=== PATIENT | male | born 1950 | race Caucasian/White ===

== ENCOUNTER 2023-06-24 10:54 | Observation (INO) ==
[2023-06-24 17:46] LABS: Hematocrit 49.8 % (38-53); Mean Corpuscular Hemoglobin 32.3 pg (27-33); Mean Corpuscular Hgb Conc 34.2 g/dL (31-36); Mean Corpuscular Volume 94.4 fL (80-97); Mean Platelet Volume 7.6 fL (7.5-11.2); Platelet Count 445 10^3/uL (150-450); Red Blood Count 5.27 10^6/uL (4.06-5.63); Red Cell Distribution Width 14.1 % (12-17); White Blood Count 11.1 10^3/uL (3.6-10.2)
[2023-06-24] MEDS ORDERED: Enoxaparin 40 MG/0.4 ML SYR SUBCUT SCH (18:00)
[2023-06-24 18:12] LABS: ALT 47 U/L (7-52); AST 67 U/L (13-39); Albumin < 1.7 g/dL (3.2-5.2); Albumin/Globulin Ratio 0.5 (1-3); Alkaline Phosphatase 148 U/L (35-149); Anion Gap 3 mmol/L (2-16); Blood Urea Nitrogen 30 mg/dL (6-24); CO2 Carbon Dioxide 32 mmol/L (22-32); Calcium 7.7 mg/dL (8.6-10.3); Chloride 98 mmol/L (101-111); Creatinine, Serum 0.85 mg/dL (0.67-1.17); Globulin 3.4 g/dL (2-4); Glucose 113 mg/dL (70-100); Potassium 4.8 mmol/L (3.5-5.0); Sodium 133 mmol/L (135-145); Total Bilirubin 0.2 mg/dL (0.2-1.0); Total Protein 5.1 g/dL (6.4-8.9); eGFR CKD-EPI 92.9 (>60)
[2023-06-24 19:01] LABS: ABS Basophils 0.1 10^3/uL (0.0-0.1); ABS Lymphocytes 1.5 10^3/uL (1.0-4.8); ABS Monocytes 0.4 10^3/uL (0.0-1.1); ABS Neutrophils 9.1 10^3/uL (1.5-7.6); ABS Nucleated RBC 0.04 10^3/ul; Lymphocyte % 13.5 %; Nucleated Red Blood Cells % 0.4 %/100WBC (0.0-0.8); RBC Morphology Normal (Normal)
[2023-06-24 19:35] LABS: Urine Appearance Cloudy; Urine Bilirubin Negative (Negative); Urine Blood 1+ (Negative); Urine Color Yellow; Urine Glucose Negative (Negative); Urine Ketones Negative (Negative); Urine Nitrite Negative (Negative); Urine Protein 3+(>=500 mg/dL) (Negative); Urine Specific Gravity 1.032 (1.002-1.030); Urine Urobilinogen Negative (Negative)
[2023-06-24 19:41] LABS: Urine Bacteria Absent (Absent); Urine Red Blood Cell 1+(3-5/hpf) (Absent); Urine Sperm Present (Absent); Urine White Blood Cell Trace(0-5/hpf) (Absent)
[2023-06-24] MEDS ORDERED: Iohexol 350 (CONTRAST) 500 ML MDV IV ONE (19:49)
[2023-06-24 20:38] LABS: Hepatitis B Surface Ab Not Immune (Immune); Hepatitis C Antibody Negative (Negative)
[2023-06-24] MEDS ORDERED: Lorazepam PYXIS KEY PRN (21:43)
[2023-06-24] MEDS ORDERED: LORazepam 2 mg VIAL 1 ml IV PUSH ONE (21:43)
[2023-06-24 21:49] LABS: Urine Creatinine 138.82 mg/dL
[2023-06-25 06:00] LABS: ABS Basophils 0.1 10^3/uL (0.0-0.1); ABS Eosinophils 0.1 10^3/uL (0.0-0.5); ABS Neutrophils 6.8 10^3/uL (1.5-7.6); ABS Nucleated RBC 0.04 10^3/ul; Eosinophil % 1.2 %; Hematocrit 45.7 % (38-53); Hemoglobin 15.7 g/dL (13.2-16.3); Lymphocyte % 33.3 %; Mean Corpuscular Hemoglobin 32.3 pg (27-33); Mean Corpuscular Hgb Conc 34.4 g/dL (31-36); Mean Corpuscular Volume 93.8 fL (80-97); Mean Platelet Volume 7.5 fL (7.5-11.2); Nucleated Red Blood Cells % 0.3 %/100WBC (0.0-0.8); Platelet Count 378 10^3/uL (150-450); Red Blood Count 4.87 10^6/uL (4.06-5.63); Red Cell Distribution Width 14.4 % (12-17)
[2023-06-25 06:09] LABS: Activated Partial Thrombo Time 35.1 seconds (26.0-38.0); INR 0.89 (0.83-1.13)
[2023-06-25 06:35] LABS: Blood Urea Nitrogen 29 mg/dL (6-24); CO2 Carbon Dioxide 30 mmol/L (22-32); Calcium 7.5 mg/dL (8.6-10.3); Chloride 101 mmol/L (101-111); Creatinine, Serum 0.72 mg/dL (0.67-1.17); Glucose 81 mg/dL (70-100); Potassium 4.1 mmol/L (3.5-5.0); Sodium 131 mmol/L (135-145); eGFR CKD-EPI 97.7 (>60)
[2023-06-25 06:35] LABS: Hepatitis B Surface Antigen Nonreactive (Nonreactive)
[2023-06-25 06:38] LABS: ALT 39 U/L (7-52); AST 47 U/L (13-39); Albumin < 1.7 g/dL (3.2-5.2); Albumin/Globulin Ratio 0.7 (1-3); Alkaline Phosphatase 126 U/L (35-149); Cholesterol 318 mg/dL; Globulin 2.5 g/dL (2-4); HDL Cholesterol 56.7 mg/dL; LDL Cholesterol 218 mg/dL; Magnesium 1.8 mg/dL (1.9-2.7); Phosphorus 3.4 mg/dL (2.5-5.0); Total Bilirubin 0.2 mg/dL (0.2-1.0); Total Protein 4.2 g/dL (6.4-8.9); Triglycerides 217 mg/dL
[2023-06-25 09:45] LABS: HIV 4th Generation Nonreactive (Nonreactive)
[2023-06-25] MEDS ORDERED: Albumin Human 25% 25 GM/100 ML BTL IV ONE (09:48)
[2023-06-25] MEDS: Bumetanide IV 0.25 MG/ML 4 ml VIAL (1 mg) IV SLOW PU SCH ×2 (10:00→20:33)
[2023-06-25] MEDS ORDERED: NS 0.9% IVPB ONE (11:20)
[2023-06-25] MEDS ORDERED: DESMOPRESSIN ACETATE IVPB ONE (11:20)
[2023-06-26 04:02] LABS: Urine TP Concentration 416 mg/dL
[2023-06-26 06:25] LABS: ABS Basophils 0.1 10^3/uL (0.0-0.1); ABS Eosinophils 0.4 10^3/uL (0.0-0.5); ABS Lymphocytes 2.7 10^3/uL (1.0-4.8); ABS Monocytes 0.7 10^3/uL (0.0-1.1); ABS Neutrophils 4.4 10^3/uL (1.5-7.6); ABS Nucleated RBC 0.02 10^3/ul; Eosinophil % 4.4 %; Hematocrit 38.3 % (38-53); Hemoglobin 13.4 g/dL (13.2-16.3); Lymphocyte % 33.1 %; Mean Corpuscular Hemoglobin 32.6 pg (27-33); Mean Corpuscular Hgb Conc 34.9 g/dL (31-36); Mean Corpuscular Volume 93.4 fL (80-97); Mean Platelet Volume 7.7 fL (7.5-11.2); Nucleated Red Blood Cells % 0.2 %/100WBC (0.0-0.8); Platelet Count 320 10^3/uL (150-450); Red Cell Distribution Width 14.3 % (12-17); White Blood Count 8.3 10^3/uL (3.6-10.2)
[2023-06-26 06:28] LABS: INR 0.95 (0.83-1.13)
[2023-06-26 06:37] LABS: Anion Gap 1 mmol/L (2-16); Blood Urea Nitrogen 30 mg/dL (6-24); CO2 Carbon Dioxide 33 mmol/L (22-32); Calcium 7.2 mg/dL (8.6-10.3); Chloride 102 mmol/L (101-111); Creatinine, Serum 0.66 mg/dL (0.67-1.17); Glucose 82 mg/dL (70-100); Potassium 3.5 mmol/L (3.5-5.0); Sodium 136 mmol/L (135-145); eGFR CKD-EPI 100.3 (>60)
[2023-06-26 06:38] LABS: ALT 31 U/L (7-52); AST 39 U/L (13-39); Albumin < 1.7 g/dL (3.2-5.2); Albumin/Globulin Ratio 0.9 (1-3); Alkaline Phosphatase 90 U/L (35-149); Globulin 1.9 g/dL (2-4); Magnesium 1.7 mg/dL (1.9-2.7); Total Bilirubin 0.3 mg/dL (0.2-1.0); Total Protein 3.6 g/dL (6.4-8.9)
[2023-06-26] MEDS ORDERED: Bumetanide IV 0.25 MG/ML 4 ml VIAL (1 mg) IV SLOW PU ONE ×2 (08:57→18:47)
[2023-06-26] MEDS ORDERED: Influenza vaccine *QUAD* *2023-24* 0.5 ML SYRINGE IM ONE (09:00)
[2023-06-26] MEDS ORDERED: Magnesium Sulfate 2 gm BAG 2 GM/50 ML BAG IVPB ONE (09:03)
[2023-06-26] MEDS: Enoxaparin 40 MG/0.4 ML SYR SUBCUT SCH (10:27)
[2023-06-26] MEDS: Albumin Human 25% 25 GM/100 ML BTL IV SCH ×3 (12:03→18:12)
[2023-06-26] MEDS: KCL 20 MEQ/100 ML IVPREMIX 20 MEQ/100 ML BAG IV SCH ×2 (12:08→17:43)
[2023-06-26 15:44] LABS: Kappa Free Light Chain 5.04 mg/dL; Lambda Free Light Chain, S 3.06 mg/dL
[2023-06-26 16:56] LABS: Body Fluid Appearance Cloudy; Body Fluid Color Colorless; Body Fluid Source Peritonial Fluid
[2023-06-26 17:17] LABS: Body Fluid Total Nucleated 139 /mcL
[2023-06-26] MEDS ORDERED: KCL 20 MEQ/100 ML IVPREMIX 20 MEQ/100 ML BAG ONE (17:38)
[2023-06-26 17:49] LABS: Body Fluid Mono 61 %; Body Fluid Total Cells Counted 200
[2023-06-26 20:44] LABS: Complement C3 137 mg/dL (75 - 175)
[2023-06-27] MEDS: Albumin Human 25% 25 GM/100 ML BTL IV SCH ×4 (00:33→20:12)
[2023-06-27 07:12] LABS: ALT 22 U/L (7-52); AST 29 U/L (13-39); Albumin 2.2 g/dL (3.2-5.2); Albumin/Globulin Ratio 1.3 (1-3); Alkaline Phosphatase 70 U/L (35-149); Blood Urea Nitrogen 19 mg/dL (6-24); CO2 Carbon Dioxide 35 mmol/L (22-32); Calcium 7.2 mg/dL (8.6-10.3); Chloride 103 mmol/L (101-111); Globulin 1.7 g/dL (2-4); Glucose 88 mg/dL (70-100); Magnesium 1.9 mg/dL (1.9-2.7); Potassium 3.4 mmol/L (3.5-5.0); Sodium 138 mmol/L (135-145); Total Bilirubin 0.5 mg/dL (0.2-1.0); Total Protein 3.9 g/dL (6.4-8.9); eGFR CKD-EPI 103.2 (>60)
[2023-06-27] MEDS ORDERED: Influenza vaccine *QUAD* *2023-24* 0.5 ML SYRINGE IM ONE (09:00)
[2023-06-27] MEDS: Enoxaparin 40 MG/0.4 ML SYR SUBCUT SCH (12:42)
[2023-06-27] MEDS: KCL 20 MEQ/100 ML IVPREMIX 20 MEQ/100 ML BAG IV SCH ×2 (12:43→16:33)
[2023-06-27] MEDS: Bumetanide IV 0.25 MG/ML 4 ml VIAL (1 mg) IV SLOW PU SCH ×2 (13:45→21:40)
[2023-06-27] MEDS: Potassium Chlor 20 meq TAB.ER PO SCH ×2 (20:15→21:40)
[2023-06-28] MEDS: Albumin Human 25% 25 GM/100 ML BTL IV SCH ×2 (00:10→06:00)
[2023-06-28 06:40] LABS: Hematocrit 34.6 % (38-53); Mean Corpuscular Hemoglobin 32.2 pg (27-33); Mean Corpuscular Hgb Conc 34.7 g/dL (31-36); Mean Corpuscular Volume 92.9 fL (80-97); Platelet Count 241 10^3/uL (150-450); Red Blood Count 3.73 10^6/uL (4.06-5.63); Red Cell Distribution Width 13.9 % (12-17); White Blood Count 8.4 10^3/uL (3.6-10.2)
[2023-06-28 07:00] LABS: Albumin 2.6 g/dL (3.2-5.2); Albumin/Globulin Ratio 1.5 (1-3); Calcium 7.6 mg/dL (8.6-10.3); Creatinine, Serum 0.55 mg/dL (0.67-1.17); Globulin 1.7 g/dL (2-4); Magnesium 1.8 mg/dL (1.9-2.7); Potassium 3.5 mmol/L (3.5-5.0); Total Bilirubin 0.7 mg/dL (0.2-1.0); Total Protein 4.3 g/dL (6.4-8.9)
[2023-06-28 07:25] LABS: ABS Basophils 0.1 10^3/uL (0.0-0.1); ABS Eosinophils 0.3 10^3/uL (0.0-0.5); ABS Lymphocytes 2.2 10^3/uL (1.0-4.8); ABS Neutrophils 4.8 10^3/uL (1.5-7.6); Eosinophil % 3.6 %; Lymphocyte % 25.8 %; RBC Morphology Normal (Normal)
[2023-06-28] MEDS ORDERED: Potassium Chloride LIQUID 20 MEQ/15 ML LIQUID PO ONE (08:40)
[2023-06-28] MEDS ORDERED: Magnesium Sulfate 2 gm BAG 2 GM/50 ML BAG IVPB ONE (08:40)
[2023-06-28] MEDS ORDERED: Potassium Chlor 10 meq TAB PO ONE (08:40)
[2023-06-28] MEDS: Enoxaparin 40 MG/0.4 ML SYR SUBCUT SCH (10:13)
[2023-06-28 15:37] LABS: Lactate Dehydrogenase, BF 39 U/L
[2023-06-28] MEDS: Potassium Chlor 20 meq TAB.ER PO SCH (21:08)
[2023-06-28] MEDS: Bumetanide IV 0.25 MG/ML 4 ml VIAL (1 mg) IV SLOW PU SCH (21:09)
[2023-06-29 09:03] LABS: ABS Basophils 0.1 10^3/uL (0.0-0.1); ABS Eosinophils 0.4 10^3/uL (0.0-0.5); ABS Lymphocytes 1.9 10^3/uL (1.0-4.8); ABS Neutrophils 5.7 10^3/uL (1.5-7.6); ABS Nucleated RBC 0.01 10^3/ul; Eosinophil % 3.8 %; Hematocrit 40.1 % (38-53); Hemoglobin 13.7 g/dL (13.2-16.3); Lymphocyte % 21.1 %; Mean Corpuscular Hemoglobin 32.1 pg (27-33); Mean Corpuscular Hgb Conc 34.2 g/dL (31-36); Mean Corpuscular Volume 93.9 fL (80-97); Mean Platelet Volume 8.1 fL (7.5-11.2); Nucleated Red Blood Cells % 0.1 %/100WBC (0.0-0.8); Platelet Count 267 10^3/uL (150-450); Red Blood Count 4.28 10^6/uL (4.06-5.63); Red Cell Distribution Width 13.9 % (12-17); White Blood Count 9.1 10^3/uL (3.6-10.2)
[2023-06-29] MEDS: Potassium Chlor 20 meq TAB.ER PO SCH ×2 (09:16→20:32)
[2023-06-29] MEDS: Enoxaparin 40 MG/0.4 ML SYR SUBCUT SCH (09:16)
[2023-06-29] MEDS: Bumetanide IV 0.25 MG/ML 4 ml VIAL (1 mg) IV SLOW PU SCH ×3 (09:25→20:22)
[2023-06-29 09:28] LABS: Albumin 2.1 g/dL (3.2-5.2); Calcium 7.6 mg/dL (8.6-10.3); Creatinine, Serum 0.57 mg/dL (0.67-1.17); Globulin 2.2 g/dL (2-4); Magnesium 1.8 mg/dL (1.9-2.7); Potassium 3.9 mmol/L (3.5-5.0); Total Bilirubin 0.5 mg/dL (0.2-1.0); Total Protein 4.3 g/dL (6.4-8.9); eGFR CKD-EPI 104.8 (>60)
[2023-06-29 10:57] LABS: Fluid Type, Protein, Total PERITONEAL; Glucose, BF 133 mg/dL; Total Protein, BF 0.2 g/dL
[2023-06-29 12:43] LABS: Albumin, BF <0.3 g/dL; Fluid Type, Albumin PERITONEAL
[2023-06-29] MEDS ORDERED: Albumin Human 25% 25 GM/100 ML BTL IV ONE (14:52)
[2023-06-29] MEDS ORDERED: Magnesium Sulfate 2 gm BAG 2 GM/50 ML BAG IVPB ONE (15:13)
[2023-06-29] MEDS ORDERED: Albumin Human 25% 25 GM/100 ML BTL IV SCH (15:30)
[2023-06-29] MEDS: Albumin Human 25% 25 GM/100 ML BTL IV SCH ×2 (18:14→20:17)
[2023-06-29] MEDS ORDERED: Sodium Phosphate IV 15 MMOL in NS 0.9% 250 ml 250 ML IV ONE (18:38)
[2023-06-30 06:53] LABS: Hematocrit 38.9 % (38-53); Hemoglobin 13.1 g/dL (13.2-16.3); Mean Corpuscular Hemoglobin 31.7 pg (27-33); Mean Corpuscular Hgb Conc 33.7 g/dL (31-36); Mean Corpuscular Volume 93.9 fL (80-97); Mean Platelet Volume 7.6 fL (7.5-11.2); Platelet Count 266 10^3/uL (150-450); Red Blood Count 4.14 10^6/uL (4.06-5.63); Red Cell Distribution Width 14.1 % (12-17); White Blood Count 8.9 10^3/uL (3.6-10.2)
[2023-06-30 07:13] LABS: Calcium 7.5 mg/dL (8.6-10.3); Creatinine, Serum 0.59 mg/dL (0.67-1.17); Magnesium 1.9 mg/dL (1.9-2.7); Phosphorus 3.2 mg/dL (2.5-5.0); Potassium 4.1 mmol/L (3.5-5.0); eGFR CKD-EPI 103.7 (>60)
[2023-06-30 07:31] LABS: INR 1.05 (0.83-1.13)
[2023-06-30 07:48] LABS: ABS Eosinophils 0.3 10^3/uL (0.0-0.5); ABS Lymphocytes 2.2 10^3/uL (1.0-4.8); ABS Monocytes 1.2 10^3/uL (0.0-1.1); ABS Neutrophils 5.1 10^3/uL (1.5-7.6); Eosinophil % 3.7 %; Lymphocyte % 25.2 %
[2023-06-30 07:49] LABS: RBC Morphology Normal (Normal)
[2023-06-30] MEDS ORDERED: Lidocaine 2% PF 5 ML VIAL INJ ONE (08:43)
[2023-06-30] MEDS ORDERED: Potassium Chlor 20 meq TAB.ER PO SCH (09:00)
[2023-06-30 10:23] LABS: Albumin 2.4 g/dL (3.2-5.2); Total Protein 4.4 g/dL (6.4-8.9)
[2023-06-30] MEDS ORDERED: Iohexol 350 (CONTRAST) 500 ML MDV IV ONE (12:04)
[2023-06-30 13:55] VITALS: BP 112/74
[2023-07-01 22:28] LABS: Flag, M-protein Isotype Positive (Negative); M spike Band 2 0.3 g/dL; Total Protein 3.9 g/dL (6.3 - 7.9)
[2023-07-02 17:19] LABS: Urine Kappa Total Light Chain 12.7 mg/dL (<0.9000); Urine Kappa/Lambda Light Chain 3.87; Urine Lambda Total Light Chain 3.28 mg/dL (<0.7000)
[2023-07-03 08:50] LABS: PLA2R, Immunofluorescence, S Negative (Negative)
[2023-07-09 17:45] LABS: BM Chromosome Source L PIC; BM Result Summary Normal
== END 2023-06-30 15:58 | disposition home or self-care (01) ==
LOC: SUATTDRO 15:50 → MED 15:50 → INTOOBSV 15:50
PROVIDERS: ADMIT Internal Medicine; ATTEND Internal Medicine

== ENCOUNTER 2023-07-22 18:41 | Inpatient (IN) ==
[2023-07-22] MEDS ORDERED: NS 0.9% 1000 ml BAG 1,000 ML IV ONE ×3 (19:00→21:58)
[2023-07-22 19:45] LABS: ABS Basophils 0.1 10^3/uL (0.0-0.1); ABS Eosinophils 0.2 10^3/uL (0.0-0.5); ABS Lymphocytes 3.5 10^3/uL (1.0-4.8); ABS Monocytes 0.8 10^3/uL (0.0-1.1); ABS Neutrophils 8.6 10^3/uL (1.5-7.6); ABS Nucleated RBC 0.03 10^3/ul; Eosinophil % 1.6 %; Hematocrit 42.1 % (38-53); Hemoglobin 14.3 g/dL (13.2-16.3); Lymphocyte % 26.3 %; Mean Corpuscular Hemoglobin 32.2 pg (27-33); Mean Corpuscular Hgb Conc 34.1 g/dL (31-36); Mean Corpuscular Volume 94.4 fL (80-97); Mean Platelet Volume 7.2 fL (7.5-11.2); Nucleated Red Blood Cells % 0.2 %/100WBC (0.0-0.8); Platelet Count 398 10^3/uL (150-450); Red Blood Count 4.45 10^6/uL (4.06-5.63); Red Cell Distribution Width 14.5 % (12-17); White Blood Count 13.2 10^3/uL (3.6-10.2)
[2023-07-22 19:54] LABS: INR 1.02 (0.83-1.13)
[2023-07-22 20:08] LABS: Anion Gap 4 mmol/L (2-16); Blood Urea Nitrogen 25 mg/dL (6-24); C Reactive Protein 5.34 mg/L (<8.01); CO2 Carbon Dioxide 31 mmol/L (22-32); Calcium 7.3 mg/dL (8.6-10.3); Chloride 94 mmol/L (101-111); Creatinine, Serum 0.82 mg/dL (0.67-1.17); Glucose 125 mg/dL (70-100); Potassium 3.7 mmol/L (3.5-5.0); Sodium 129 mmol/L (135-145); eGFR CKD-EPI 93.9 (>60)
[2023-07-22 20:11] LABS: High Sens Troponin Baseline 11 pg/mL (<20)
[2023-07-22 20:45] LABS: ALT 24 U/L (7-52); AST 34 U/L (13-39); Albumin < 1.7 g/dL (3.2-5.2); Albumin/Globulin Ratio 0.6 (1-3); Alkaline Phosphatase 138 U/L (35-149); Globulin 2.9 g/dL (2-4); Lipase 44 U/L (11.0-82.0); Magnesium 1.8 mg/dL (1.9-2.7); Phosphorus 4.3 mg/dL (2.5-5.0); Total Bilirubin 0.1 mg/dL (0.2-1.0); Total Protein 4.6 g/dL (6.4-8.9)
[2023-07-22 21:10] LABS: High Sensitivity Troponin 1 Hr 10 pg/mL (<20)
[2023-07-22 21:40] LABS: Urine Appearance Cloudy; Urine Bilirubin Negative (Negative); Urine Blood 1+ (Negative); Urine Color Yellow; Urine Glucose 1+(50 mg/dL) (Negative); Urine Ketones Negative (Negative); Urine Nitrite Negative (Negative); Urine Protein 3+(>=500 mg/dL) (Negative); Urine Specific Gravity 1.019 (1.002-1.030); Urine Urobilinogen Negative (Negative)
[2023-07-22 21:50] LABS: Urine Bacteria 1+ (Absent); Urine Red Blood Cell 1+(3-5/hpf) (Absent); Urine Squamous Epithelial Cell Present (Absent); Urine White Blood Cell 2+(11-20/hpf) (Absent)
[2023-07-23] MEDS ORDERED: Norepinephrine 4 MG/250mL D5W 4,000 MCG/250 ML BAG IV SCH
[2023-07-23] MEDS ORDERED: Albumin Human 25% 25 GM/100 ML BTL IV ONE ×2 (04:26→08:00)
[2023-07-23] MEDS ORDERED: cefTRIAXone 1 gm/50 mL D5W 1 GM/50 ML BAG IV ONE (05:15)
[2023-07-23] MEDS ORDERED: cefTRIAXone 1 GM ONETIME (ADVAN) IVPB ONE (05:30)
[2023-07-23] MEDS ORDERED: Piperacillin/Tazobac 3.375 BAG 3.375 GM/100 ML BAG IV ONE (05:36)
[2023-07-23] MEDS ORDERED: Zosyn per Pharmacy NOTE FOLLOW UP SCH (06:00)
[2023-07-23 07:03] LABS: ABS Basophils 0.1 10^3/uL (0.0-0.1); ABS Eosinophils 0.3 10^3/uL (0.0-0.5); ABS Lymphocytes 3.9 10^3/uL (1.0-4.8); ABS Monocytes 1.1 10^3/uL (0.0-1.1); ABS Neutrophils 8.9 10^3/uL (1.5-7.6); ABS Nucleated RBC 0.01 10^3/ul; Eosinophil % 2.3 %; Hematocrit 42.1 % (38-53); Hemoglobin 14.5 g/dL (13.2-16.3); Lymphocyte % 27.4 %; Mean Corpuscular Hemoglobin 32.2 pg (27-33); Mean Corpuscular Hgb Conc 34.6 g/dL (31-36); Mean Platelet Volume 6.8 fL (7.5-11.2); Nucleated Red Blood Cells % 0.1 %/100WBC (0.0-0.8); Platelet Count 403 10^3/uL (150-450); Red Blood Count 4.52 10^6/uL (4.06-5.63); Red Cell Distribution Width 14.5 % (12-17); White Blood Count 14.4 10^3/uL (3.6-10.2)
[2023-07-23 08:03] LABS: Creatinine, Serum 0.69 mg/dL (0.67-1.17); Magnesium 1.6 mg/dL (1.9-2.7); Potassium 3.9 mmol/L (3.5-5.0); eGFR CKD-EPI 98.9 (>60)
[2023-07-23] MEDS: KCL 20 MEQ/100 ML IVPREMIX 20 MEQ/100 ML BAG IV SCH ×2 (09:04→11:17)
[2023-07-23] MEDS: ZOSYN 3.375 GM Q8H per EXTENDED INFUSION IV SCH ×2 (11:49→16:57)
[2023-07-24] MEDS: ZOSYN 3.375 GM Q8H per EXTENDED INFUSION IV SCH ×2 (02:20→10:08)
[2023-07-24 04:57] LABS: Hematocrit 34.7 % (38-53); Hemoglobin 12.2 g/dL (13.2-16.3); Mean Corpuscular Hemoglobin 32.4 pg (27-33); Mean Corpuscular Volume 92.6 fL (80-97); Platelet Count 339 10^3/uL (150-450); Red Blood Count 3.75 10^6/uL (4.06-5.63); Red Cell Distribution Width 14.2 % (12-17); White Blood Count 8.1 10^3/uL (3.6-10.2)
[2023-07-24 05:15] LABS: Calcium 6.8 mg/dL (8.6-10.3); Creatinine, Serum 0.73 mg/dL (0.67-1.17); Magnesium 1.6 mg/dL (1.9-2.7); eGFR CKD-EPI 97.3 (>60)
[2023-07-24 05:54] LABS: Potassium 3.5 mmol/L (3.5-5.0)
[2023-07-24 08:02] LABS: ABS Eosinophils 0.5 10^3/uL (0.0-0.5); ABS Lymphocytes 3.2 10^3/uL (1.0-4.8); ABS Monocytes 0.8 10^3/uL (0.0-1.1); ABS Neutrophils 3.6 10^3/uL (1.5-7.6); ABS Nucleated RBC 0.01 10^3/ul; Eosinophil % 5.6 %; Lymphocyte % 39.1 %; Nucleated Red Blood Cells % 0.1 %/100WBC (0.0-0.8); RBC Morphology Normal (Normal)
[2023-07-24] MEDS: Potassium Chlor 20 meq TAB.ER PO SCH ×2 (11:42→13:10)
[2023-07-24 12:36] VITALS: BP 103/66
[2023-07-24] MEDS ORDERED: Magnesium Sulfate 2 gm BAG 2 GM/50 ML BAG IVPB ONE (12:50)
== END 2023-07-24 14:15 | disposition home or self-care (01) | DRG 315 ==
LOC: ED 18:41 → EDHOLD 07-23 00:37 → ICU 07-23 13:15
PROVIDERS: ADMIT Surgery Surgical Critical Care; ATTEND Surgery Surgical Critical Care

== ENCOUNTER 2023-07-30 17:50 | Inpatient (IN) ==
[2023-07-30] MEDS ORDERED: NS 0.9% 1000 ml BAG 1,000 ML IV ONE (18:27)
[2023-07-30] MEDS ORDERED: Prothrombin Complex Conc. DOSE = Units Factor IX (nine) IV SLOW PU ONE (18:28)
[2023-07-30 18:34] LABS: Hematocrit 40.9 % (38-53); Hemoglobin 14.1 g/dL (13.2-16.3); Mean Corpuscular Hemoglobin 32.4 pg (27-33); Mean Corpuscular Hgb Conc 34.5 g/dL (31-36); Mean Corpuscular Volume 93.9 fL (80-97); Mean Platelet Volume 6.8 fL (7.5-11.2); Platelet Count 484 10^3/uL (150-450); Red Blood Count 4.36 10^6/uL (4.06-5.63); White Blood Count 8.4 10^3/uL (3.6-10.2)
[2023-07-30 18:50] LABS: Activated Partial Thrombo Time 32.7 seconds (26.0-38.0); INR 0.97 (0.83-1.13)
[2023-07-30 18:52] LABS: Anion Gap 6 mmol/L (2-16); Blood Urea Nitrogen 25 mg/dL (6-24); CO2 Carbon Dioxide 27 mmol/L (22-32); Calcium 7.2 mg/dL (8.6-10.3); Chloride 96 mmol/L (101-111); Creatinine, Serum 1.08 mg/dL (0.67-1.17); Glucose 134 mg/dL (70-100); Potassium 4.3 mmol/L (3.5-5.0); Sodium 129 mmol/L (135-145); eGFR CKD-EPI 73.4 (>60)
[2023-07-30 18:59] LABS: ALT 44 U/L (7-52); AST 106 U/L (13-39); Albumin < 1.7 g/dL (3.2-5.2); Albumin/Globulin Ratio 0.7 (1-3); Alkaline Phosphatase 159 U/L (35-149); Globulin 2.6 g/dL (2-4); Total Bilirubin 0.2 mg/dL (0.2-1.0); Total Protein 4.3 g/dL (6.4-8.9)
[2023-07-30 19:47] LABS: ABS Basophils 0.1 10^3/uL (0.0-0.1); ABS Lymphocytes 1.3 10^3/uL (1.0-4.8); ABS Monocytes 0.3 10^3/uL (0.0-1.1); ABS Neutrophils 6.7 10^3/uL (1.5-7.6); ABS Nucleated RBC 0.02 10^3/ul; Eosinophil % 0.1 %; Lymphocyte % 15.1 %; Nucleated Red Blood Cells % 0.2 %/100WBC (0.0-0.8)
[2023-07-30] MEDS ORDERED: Lactated Ringers 1000 ml BAG 1,000 ML IV ONE (20:00)
[2023-07-30] MEDS ORDERED: Albuterol/Ipratropium NEB.SOL (2.5/0.5 MG) 3 ML NEB.SOLN INH ONE (20:46)
[2023-07-30] MEDS ORDERED: methylPREDNISolone SOD SUCC 125 mg 2 ML VIAL IV ONE (22:59)
[2023-07-30] MEDS ORDERED: Pantoprazole VIAL 40 MG VIAL IV ONE (23:11)
[2023-07-30] MEDS ORDERED: Norepinephrine 4 MG/250mL D5W 4,000 MCG/250 ML BAG IV SCH (23:45)
[2023-07-30] MEDS: Albuterol HFA INHALER 8 gm MDI INH SCH (23:47)
[2023-07-31] MEDS ORDERED: Remdesivir 100 mg Vial 200 MG in NS 0.9% 250 ml 210 ML IV ONE (01:00)
[2023-07-31] MEDS ORDERED: Albumin Human 5% 12.5 GM/250 ML BTL IV ONE (02:19)
[2023-07-31] MEDS: Albuterol HFA INHALER 8 gm MDI INH SCH ×3 (03:31→11:17)
[2023-07-31 03:41] LABS: Anion Gap 8 mmol/L (2-16); Blood Urea Nitrogen 27 mg/dL (6-24); CO2 Carbon Dioxide 25 mmol/L (22-32); Calcium 6.7 mg/dL (8.6-10.3); Chloride 97 mmol/L (101-111); Creatinine, Serum 1.17 mg/dL (0.67-1.17); Glucose 140 mg/dL (70-100); Potassium 4.1 mmol/L (3.5-5.0); Sodium 130 mmol/L (135-145); eGFR CKD-EPI 66.6 (>60)
[2023-07-31 03:42] LABS: INR 0.85 (0.83-1.13)
[2023-07-31 03:45] LABS: ALT 38 U/L (7-52); AST 72 U/L (13-39); Albumin < 1.7 g/dL (3.2-5.2); Albumin/Globulin Ratio 0.7 (1-3); Alkaline Phosphatase 142 U/L (35-149); Globulin 2.3 g/dL (2-4); Magnesium 1.6 mg/dL (1.9-2.7); Total Bilirubin 0.2 mg/dL (0.2-1.0)
[2023-07-31 04:43] LABS: ABS Lymphocytes 0.6 10^3/uL (1.0-4.8); ABS Monocytes 0.4 10^3/uL (0.0-1.1); ABS Neutrophils 10.6 10^3/uL (1.5-7.6); ABS Nucleated RBC 0.01 10^3/ul; Hemoglobin 13.9 g/dL (13.2-16.3); Lymphocyte % 5.2 %; Mean Corpuscular Hemoglobin 32.1 pg (27-33); Mean Corpuscular Hgb Conc 33.9 g/dL (31-36); Mean Corpuscular Volume 94.5 fL (80-97); Mean Platelet Volume 8.3 fL (7.5-11.2); Nucleated Red Blood Cells % 0.1 %/100WBC (0.0-0.8); Platelet Count 440 10^3/uL (150-450); Red Blood Count 4.34 10^6/uL (4.06-5.63); Red Cell Distribution Width 15.3 % (12-17); White Blood Count 11.7 10^3/uL (3.6-10.2)
[2023-07-31] MEDS: SPIRIVA Respimat (tiotropium) 2.5 mcg/inh Inhaler INH SCH (11:15)
[2023-07-31] MEDS ORDERED: Albuterol HFA INHALER 8 gm MDI INH PRN (11:15)
[2023-08-01] MEDS ORDERED: Albuterol/Ipratropium NEB.SOL (2.5/0.5 MG) 3 ML NEB.SOLN INH PRN (03:10)
[2023-08-01] MEDS ORDERED: Albuterol/Ipratropium NEB.SOL (2.5/0.5 MG) 3 ML NEB.SOLN INH ONE (04:00)
[2023-08-01 06:40] LABS: ABS Monocytes 0.7 10^3/uL (0.0-1.1); ABS Neutrophils 6.4 10^3/uL (1.5-7.6); ABS Nucleated RBC 0.01 10^3/ul; Eosinophil % 0.1 %; Hematocrit 40.7 % (38-53); Hemoglobin 14.3 g/dL (13.2-16.3); Lymphocyte % 12.2 %; Mean Corpuscular Hemoglobin 32.3 pg (27-33); Mean Corpuscular Volume 92.2 fL (80-97); Mean Platelet Volume 7.5 fL (7.5-11.2); Nucleated Red Blood Cells % 0.1 %/100WBC (0.0-0.8); Platelet Count 361 10^3/uL (150-450); Red Blood Count 4.42 10^6/uL (4.06-5.63); Red Cell Distribution Width 15.1 % (12-17); White Blood Count 8.2 10^3/uL (3.6-10.2)
[2023-08-01 06:54] LABS: INR 1.05 (0.83-1.13)
[2023-08-01 06:55] LABS: Anion Gap 9 mmol/L (2-16); Blood Urea Nitrogen 43 mg/dL (6-24); CO2 Carbon Dioxide 23 mmol/L (22-32); Calcium 6.6 mg/dL (8.6-10.3); Chloride 96 mmol/L (101-111); Creatinine, Serum 1.61 mg/dL (0.67-1.17); Glucose 84 mg/dL (70-100); Potassium 3.8 mmol/L (3.5-5.0); Sodium 128 mmol/L (135-145); eGFR CKD-EPI 45.4 (>60)
[2023-08-01 06:57] LABS: ALT 28 U/L (7-52); AST 72 U/L (13-39); Albumin < 1.7 g/dL (3.2-5.2); Albumin/Globulin Ratio 0.8 (1-3); Alkaline Phosphatase 116 U/L (35-149); Globulin 2.1 g/dL (2-4); Magnesium 1.5 mg/dL (1.9-2.7); Total Bilirubin 0.2 mg/dL (0.2-1.0); Total Protein 3.8 g/dL (6.4-8.9)
[2023-08-01] MEDS ORDERED: Magnesium Sulf 4 GM/100 ML IV 4,000 MG/100 ML BAG IVPB ONE (07:37)
[2023-08-01] MEDS: SPIRIVA Respimat (tiotropium) 2.5 mcg/inh Inhaler INH SCH (07:57)
[2023-08-01] MEDS ORDERED: Albumin Human 5% 12.5 GM/250 ML BTL IV ONE (11:27)
[2023-08-01] MEDS: Albumin Human 25% 25 GM/100 ML BTL IV ONE ×2 (12:07→12:09)
[2023-08-01 12:38] LABS: PCO2 Arterial 32 mmHg (35-45); PO2 Arterial 97 mmHg (80-100)
[2023-08-01] MEDS: Remdesivir 100 mg Vial 100 MG in NS 0.9% 250 ml 230 ML IV SCH (13:56)
[2023-08-01] MEDS ORDERED: methylPREDNISolone SOD SUCC 40 mg/ml 1 ml VIAL IV SCH (17:00)
[2023-08-01] MEDS: methylPREDNISolone SOD SUCC 40 mg/ml 1 ml VIAL IV SCH (17:27)
[2023-08-02] MEDS: methylPREDNISolone SOD SUCC 40 mg/ml 1 ml VIAL IV SCH ×2 (05:09→16:42)
[2023-08-02] MEDS: SPIRIVA Respimat (tiotropium) 2.5 mcg/inh Inhaler INH SCH (07:13)
[2023-08-02] MEDS: Remdesivir 100 mg Vial 100 MG in NS 0.9% 250 ml 230 ML IV SCH (09:42)
[2023-08-02 10:28] LABS: INR 1.45 (0.83-1.13)
[2023-08-02 11:42] LABS: ABS Lymphocytes 0.7 10^3/uL (1.0-4.8); ABS Monocytes 0.4 10^3/uL (0.0-1.1); ABS Neutrophils 6.7 10^3/uL (1.5-7.6); ABS Nucleated RBC 0.01 10^3/ul; Eosinophil % 0.2 %; Hematocrit 39.6 % (38-53); Hemoglobin 13.2 g/dL (13.2-16.3); Lymphocyte % 8.7 %; Mean Corpuscular Hemoglobin 32.7 pg (27-33); Mean Corpuscular Hgb Conc 33.4 g/dL (31-36); Mean Corpuscular Volume 97.9 fL (80-97); Mean Platelet Volume 7.1 fL (7.5-11.2); Nucleated Red Blood Cells % 0.1 %/100WBC (0.0-0.8); Platelet Count 300 10^3/uL (150-450); Red Blood Count 4.05 10^6/uL (4.06-5.63); Red Cell Distribution Width 16.2 % (12-17); White Blood Count 7.8 10^3/uL (3.6-10.2)
[2023-08-02 12:11] LABS: ALT 28 U/L (7-52); Albumin < 1.7 g/dL (3.2-5.2); Alkaline Phosphatase 104 U/L (35-149); Anion Gap 15 mmol/L (2-16); Blood Urea Nitrogen 56 mg/dL (6-24); CO2 Carbon Dioxide 18 mmol/L (22-32); Calcium 6.6 mg/dL (8.6-10.3); Chloride 95 mmol/L (101-111); Creatinine, Serum 1.94 mg/dL (0.67-1.17); Globulin 1.7 g/dL (2-4); Glucose 146 mg/dL (70-100); Magnesium 2.3 mg/dL (1.9-2.7); Sodium 128 mmol/L (135-145); Total Bilirubin 0.4 mg/dL (0.2-1.0); Total Protein 3.4 g/dL (6.4-8.9); eGFR CKD-EPI 36.3 (>60)
[2023-08-02 15:52] LABS: Potassium Redraw 4.1 mmol/L (3.5-5.0)
[2023-08-03] MEDS: methylPREDNISolone SOD SUCC 40 mg/ml 1 ml VIAL IV SCH (05:48)
[2023-08-03] MEDS: SPIRIVA Respimat (tiotropium) 2.5 mcg/inh Inhaler INH SCH (07:54)
[2023-08-03 09:44] LABS: ABS Lymphocytes 1.1 10^3/uL (1.0-4.8); ABS Monocytes 0.9 10^3/uL (0.0-1.1); ABS Neutrophils 8.9 10^3/uL (1.5-7.6); ABS Nucleated RBC 0.01 10^3/ul; Eosinophil % 0.1 %; Hematocrit 46.9 % (38-53); Hemoglobin 15.9 g/dL (13.2-16.3); Lymphocyte % 10.4 %; Mean Corpuscular Hemoglobin 32.5 pg (27-33); Mean Corpuscular Hgb Conc 33.8 g/dL (31-36); Mean Platelet Volume 7.2 fL (7.5-11.2); Nucleated Red Blood Cells % 0.1 %/100WBC (0.0-0.8); Platelet Count 363 10^3/uL (150-450); Red Blood Count 4.88 10^6/uL (4.06-5.63); Red Cell Distribution Width 15.6 % (12-17)
[2023-08-03 09:56] LABS: INR 1.28 (0.83-1.13)
[2023-08-03] MEDS: Remdesivir 100 mg Vial 100 MG in NS 0.9% 250 ml 230 ML IV SCH (09:56)
[2023-08-03 10:03] LABS: Albumin 1.7 g/dL (3.2-5.2); Albumin/Globulin Ratio 0.6 (1-3); Calcium 7.1 mg/dL (8.6-10.3); Magnesium 2.5 mg/dL (1.9-2.7); Total Bilirubin 0.3 mg/dL (0.2-1.0); Total Protein 4.7 g/dL (6.4-8.9)
[2023-08-03] MEDS ORDERED: Albumin Human 5% 12.5 GM/250 ML BTL IV ONE (12:00)
[2023-08-03] MEDS ORDERED: Albumin Human 25% 25 GM/100 ML IV ONE (12:30)
[2023-08-04] MEDS: Albuterol/Ipratropium NEB.SOL (2.5/0.5 MG) 3 ML NEB.SOLN INH PRN ×2 (02:11→22:25)
[2023-08-04 07:13] LABS: ABS Lymphocytes 0.8 10^3/uL (1.0-4.8); ABS Monocytes 0.9 10^3/uL (0.0-1.1); ABS Neutrophils 6.4 10^3/uL (1.5-7.6); Hematocrit 38.2 % (38-53); Hemoglobin 12.9 g/dL (13.2-16.3); Lymphocyte % 9.4 %; Mean Corpuscular Hemoglobin 31.7 pg (27-33); Mean Corpuscular Hgb Conc 33.9 g/dL (31-36); Mean Corpuscular Volume 93.6 fL (80-97); Mean Platelet Volume 7.4 fL (7.5-11.2); Nucleated Red Blood Cells % 0.1 %/100WBC (0.0-0.8); Platelet Count 367 10^3/uL (150-450); Red Blood Count 4.08 10^6/uL (4.06-5.63); Red Cell Distribution Width 15.5 % (12-17)
[2023-08-04 07:30] LABS: Albumin 1.7 g/dL (3.2-5.2); Albumin/Globulin Ratio 0.7 (1-3); Calcium 6.8 mg/dL (8.6-10.3); Creatinine, Serum 1.92 mg/dL (0.67-1.17); Globulin 2.3 g/dL (2-4); Potassium 3.4 mmol/L (3.5-5.0); Total Bilirubin 0.4 mg/dL (0.2-1.0); eGFR CKD-EPI 36.8 (>60)
[2023-08-04] MEDS: SPIRIVA Respimat (tiotropium) 2.5 mcg/inh Inhaler INH SCH (07:41)
[2023-08-04] MEDS: Remdesivir 100 mg Vial 100 MG in NS 0.9% 250 ml 230 ML IV SCH (10:11)
[2023-08-04 10:28] LABS: Magnesium 2.4 mg/dL (1.9-2.7)
[2023-08-04] MEDS ORDERED: Senna TAB 8.6 mg TAB PO PRN (11:22)
[2023-08-04] MEDS: Potassium Chlor 20 meq TAB.ER PO SCH (22:25)
[2023-08-05 07:27] LABS: Hematocrit 39.7 % (38-53); Hemoglobin 13.6 g/dL (13.2-16.3); Mean Corpuscular Hemoglobin 32.2 pg (27-33); Mean Corpuscular Hgb Conc 34.1 g/dL (31-36); Mean Corpuscular Volume 94.2 fL (80-97); Mean Platelet Volume 7.8 fL (7.5-11.2); Platelet Count 371 10^3/uL (150-450); Red Blood Count 4.22 10^6/uL (4.06-5.63); White Blood Count 7.1 10^3/uL (3.6-10.2)
[2023-08-05] MEDS: SPIRIVA Respimat (tiotropium) 2.5 mcg/inh Inhaler INH SCH (07:39)
[2023-08-05 07:41] LABS: Anion Gap 10 mmol/L (2-16); Blood Urea Nitrogen 57 mg/dL (6-24); CO2 Carbon Dioxide 25 mmol/L (22-32); Calcium 6.9 mg/dL (8.6-10.3); Chloride 100 mmol/L (101-111); Creatinine, Serum 1.92 mg/dL (0.67-1.17); Glucose 133 mg/dL (70-100); Potassium 3.6 mmol/L (3.5-5.0); Sodium 135 mmol/L (135-145); eGFR CKD-EPI 36.8 (>60)
[2023-08-05 07:43] LABS: ALT 34 U/L (7-52); AST 75 U/L (13-39); Albumin < 1.7 g/dL (3.2-5.2); Albumin/Globulin Ratio 0.7 (1-3); Alkaline Phosphatase 131 U/L (35-149); Globulin 2.5 g/dL (2-4); Total Bilirubin 0.4 mg/dL (0.2-1.0); Total Protein 4.2 g/dL (6.4-8.9)
[2023-08-05] MEDS: Polyethylene Glycol 3350 17 GM PACKET PO SCH (08:13)
[2023-08-05] MEDS: Potassium Chlor 20 meq TAB.ER PO SCH ×2 (08:14→21:43)
[2023-08-05] MEDS: Albuterol/Ipratropium NEB.SOL (2.5/0.5 MG) 3 ML NEB.SOLN INH PRN (21:44)
[2023-08-06] MEDS ORDERED: Acetaminophen IV 1 GM/100ML 1,000 MG/100 ML BAG IV ONE (05:24)
[2023-08-06 06:22] LABS: INR 1.52 (0.83-1.13)
[2023-08-06 06:41] LABS: Anion Gap 7 mmol/L (2-16); Blood Urea Nitrogen 52 mg/dL (6-24); CO2 Carbon Dioxide 25 mmol/L (22-32); Calcium 6.8 mg/dL (8.6-10.3); Chloride 101 mmol/L (101-111); Creatinine, Serum 1.87 mg/dL (0.67-1.17); Glucose 122 mg/dL (70-100); Potassium 3.5 mmol/L (3.5-5.0); Sodium 133 mmol/L (135-145)
[2023-08-06 06:42] LABS: ALT 35 U/L (7-52); AST 75 U/L (13-39); Albumin < 1.7 g/dL (3.2-5.2); Albumin/Globulin Ratio 0.7 (1-3); Alkaline Phosphatase 129 U/L (35-149); Globulin 2.6 g/dL (2-4); Total Bilirubin 0.4 mg/dL (0.2-1.0); Total Protein 4.3 g/dL (6.4-8.9)
[2023-08-06 07:08] LABS: Hematocrit 40.8 % (38-53); Hemoglobin 14.1 g/dL (13.2-16.3); Mean Corpuscular Hemoglobin 32.7 pg (27-33); Mean Corpuscular Hgb Conc 34.6 g/dL (31-36); Mean Corpuscular Volume 94.8 fL (80-97); Mean Platelet Volume 7.8 fL (7.5-11.2); Platelet Count 338 10^3/uL (150-450); Red Blood Count 4.31 10^6/uL (4.06-5.63); Red Cell Distribution Width 15.9 % (12-17); White Blood Count 10.9 10^3/uL (3.6-10.2)
[2023-08-06 07:15] LABS: ABS Lymphocytes 0.6 10^3/uL (1.0-4.8); ABS Monocytes 0.1 10^3/uL (0.0-1.1); Lymphocyte % 5.9 %
[2023-08-06] MEDS: SPIRIVA Respimat (tiotropium) 2.5 mcg/inh Inhaler INH SCH (07:50)
[2023-08-06] MEDS: Polyethylene Glycol 3350 17 GM PACKET PO SCH (08:42)
[2023-08-06] MEDS: Potassium Chlor 20 meq TAB.ER PO SCH ×2 (08:43→20:25)
[2023-08-06] MEDS: Albuterol/Ipratropium NEB.SOL (2.5/0.5 MG) 3 ML NEB.SOLN INH PRN (19:54)
[2023-08-07] MEDS ORDERED: HYDROmorphone 0.5 MG/0.5 ML SYRINGE IV SLOW PU ONE (02:25)
[2023-08-07] MEDS: Norepinephrine 4 MG/250mL D5W 4,000 MCG/250 ML BAG IV SCH ×4 (02:57→06:34)
[2023-08-07 03:28] LABS: Venous Bicarbonate HCO3 22.7 mmol/L (24-28)
[2023-08-07 03:31] LABS: Hematocrit 43.9 % (38-53); Hemoglobin 15.1 g/dL (13.2-16.3); Mean Corpuscular Hemoglobin 32.5 pg (27-33); Mean Corpuscular Hgb Conc 34.4 g/dL (31-36); Mean Corpuscular Volume 94.3 fL (80-97); Mean Platelet Volume 8.3 fL (7.5-11.2); Platelet Count 326 10^3/uL (150-450); Red Blood Count 4.66 10^6/uL (4.06-5.63); Red Cell Distribution Width 16.3 % (12-17); White Blood Count 11.9 10^3/uL (3.6-10.2)
[2023-08-07 03:45] LABS: Albumin 1.8 g/dL (3.2-5.2); Albumin/Globulin Ratio 0.6 (1-3); Calcium 7.3 mg/dL (8.6-10.3); Creatinine, Serum 2.35 mg/dL (0.67-1.17); Globulin 3.2 g/dL (2-4); Magnesium 2.1 mg/dL (1.9-2.7); Potassium 3.8 mmol/L (3.5-5.0); Total Bilirubin 0.7 mg/dL (0.2-1.0); eGFR CKD-EPI 28.9 (>60)
[2023-08-07] MEDS ORDERED: Albumin Human 25% 25 GM/100 ML BTL IV ONE (03:49)
[2023-08-07 03:53] LABS: ABS Lymphocytes 0.2 10^3/uL (1.0-4.8); ABS Neutrophils 11.6 10^3/uL (1.5-7.6); ABS Nucleated RBC 0.02 10^3/ul; Eosinophil % 0.1 %; Lymphocyte % 1.9 %; Nucleated Red Blood Cells % 0.2 %/100WBC (0.0-0.8)
[2023-08-07 04:05] LABS: INR 1.89 (0.83-1.13)
[2023-08-07] MEDS ORDERED: Phenylephrine 40 mcg/mL 10mL (400mcg) SYRINGE IV PUSH PRN (04:23)
[2023-08-07 04:35] LABS: PCO2 Arterial 40 mmHg (35-45); PO2 Arterial 202 mmHg (80-100)
[2023-08-07] MEDS ORDERED: Piperacillin/Tazobac 3.375 BAG 3.375 GM/100 ML BAG IV ONE (05:34)
[2023-08-07] MEDS ORDERED: Zosyn per Pharmacy NOTE FOLLOW UP SCH (06:00)
[2023-08-07 06:17] LABS: Urine Appearance Cloudy; Urine Bilirubin Negative (Negative); Urine Blood 1+ (Negative); Urine Color Amber; Urine Glucose Negative (Negative); Urine Ketones Negative (Negative); Urine Nitrite Negative (Negative); Urine Protein 3+(>=500 mg/dL) (Negative); Urine Specific Gravity 1.016 (1.002-1.030); Urine Urobilinogen Negative (Negative)
[2023-08-07 06:20] LABS: Urine Bacteria 1+ (Absent); Urine Red Blood Cell Trace(0-2/hpf) (Absent); Urine Squamous Epithelial Cell Present (Absent); Urine White Blood Cell Absent (Absent)
[2023-08-07] MEDS: Hydrocortisone INJ 100 MG/2ML 2 ML VIAL IV SCH ×2 (06:31→14:39)
[2023-08-07] MEDS: Polyethylene Glycol 3350 17 GM PACKET PO SCH (07:59)
[2023-08-07] MEDS: Potassium Chlor 20 meq TAB.ER PO SCH (08:02)
[2023-08-07] MEDS ORDERED: ZOSYN 3.375 GM Q8H per EXTENDED INFUSION IV SCH (10:00)
[2023-08-07] MEDS ORDERED: Albumin Human 25% 12.5 GM/50 ML BTL IV ONE (10:00)
[2023-08-07] MEDS ORDERED: Norepinephrine *QUAD STRENGTH* 16 mg/250 mL NS (ICU ONLY) IV SCH (10:00)
[2023-08-07] MEDS ORDERED: VASOPRESSIN IVPREMIX BTL 40 UNIT/100 ML BTL IV SCH (10:30)
[2023-08-07] MEDS ORDERED: Albumin Human 25% 12.5 GM/50 ML BTL IV SCH (11:00)
[2023-08-07] MEDS: SPIRIVA Respimat (tiotropium) 2.5 mcg/inh Inhaler INH SCH (11:41)
[2023-08-07] MEDS ORDERED: Bumetanide IV 0.25 MG/ML 4 ml VIAL (1 mg) IV SLOW PU ONE (11:57)
[2023-08-07] MEDS ORDERED: Lidocaine 4% GEL 10 GM TUBE TOPICAL ONE (12:00)
[2023-08-07 15:11] VITALS: BP 109/66
[2023-08-07] MEDS ORDERED: Lidocaine 4% TOPICAL 50 ML TOP.SOLN TOPICAL PRN (15:11)
[2023-08-07] MEDS ORDERED: Senna TAB 8.6 mg TAB PO PRN (17:06)
[2023-08-07] MEDS ORDERED: Polyethylene Glycol 3350 17 GM PACKET PO PRN (17:06)
[2023-08-07] MEDS ORDERED: Ondansetron ODT 4 mg TAB 4 MG TAB SL PRN (17:06)
[2023-08-07] MEDS ORDERED: Scopolamine 1 mg/72hr PATCH TRANSDERM SCH (18:00)
[2023-08-07] MEDS ORDERED: LORazepam 2 mg VIAL 1 ml IV PUSH PRN (18:08)
[2023-08-07] MEDS ORDERED: Lorazepam PYXIS KEY PRN (18:08)
[2023-08-07] MEDS ORDERED: Ondansetron 4 mg VIAL 2 MG/ML 2 ml VIAL IV PRN (18:09)
[2023-08-07] MEDS: HYDROmorphone 1 MG/1 ML SYRINGE IV SLOW PU PRN ×2 (18:16→19:09)
[2023-08-07] MEDS ORDERED: HYDROmorphone 1 MG/1 ML SYRINGE IV SLOW PU PRN (19:19)
== END 2023-08-07 21:32 | disposition expired | DRG 177 ==
LOC: ED 17:50 → EDHOLD 07-31 00:12 → SUATTDRO 07-31 00:12 → ICU 07-31 01:32 → MEDTELE 07-31 18:33 → ICU 08-07 01:35
PROVIDERS: ADMIT Student in an Organized Health Care Education/Training Program; ATTEND Student in an Organized Health Care Education/Training Program